=== PATIENT | female | born 1990 | race Caucasian/White ===

== ENCOUNTER 2020-10-30 06:24 | Emergency (ER) | payer OTHER ==
[~2020-10-30] VITALS: Ht 157.5 cm; Wt 69.3 kg
--- NOTE | 2020-10-30 06:41 | NUR ---
REPORT GIVEN TO ONCOMING RN
[2020-10-30] MEDS ORDERED: OXYcodone/APAP 5/325MG TABLET ONE (06:56)
[2020-10-30] MEDS ORDERED: IBUPROFEN 600 MG TABLET ONE (06:56)
[2020-10-30] MEDS ORDERED: IBUPROFEN 600 MG TABLET PO ONE (07:00)
[2020-10-30] MEDS ORDERED: OXYcodone/APAP 5/325MG TABLET PO ONE (07:00)
--- NOTE | 2020-10-30 07:01 | NUR ---
report received from cheyenne watkins.
--- NOTE | 2020-10-30 07:01 | NUR ---
pt medicated per emar. pt tolerated well.
--- NOTE | 2020-10-30 07:05 | NUR ---
us in room
--- NOTE | 2020-10-30 07:43 | NUR ---
pt resting in [facility]. pt's aox4. resps even and unlabored. bp/spo2 monitors in place. call light within reach.
[2020-10-30 07:59] VITALS: BP 109/55
== END 2020-10-30 08:00 | disposition home or self-care (01) ==
LOC: ED 07:30
DX: I80.8 Phlebitis and thrombophlebitis of other sites (principal); M79.622 Pain in left upper arm; M25.522 Pain in left elbow
CPT/HCPCS: 99284

== ENCOUNTER 2021-03-15 18:44 | Emergency (ER) | payer OTHER ==
[~2021-03-15] VITALS: Ht 154.9 cm; Wt 68.0 kg
--- NOTE | 2021-03-15 19:01 | NUR ---
NIL X 1
[2021-03-15 19:17] VITALS: BP 122/93
[2021-03-15] MEDS ORDERED: DEXAMETHASONE 4 MG TABLET PO ONE (21:00)
[2021-03-15] MEDS ORDERED: DEXAMETHASONE 4 MG TABLET ONE (21:21)
== END 2021-03-15 21:29 | disposition home or self-care (01) ==
LOC: ED 21:00
DX: J06.9 Acute upper respiratory infection, unspecified (principal); Z20.822 Contact with and (suspected) exposure to COVID-19; R05 Cough
CPT/HCPCS: 71046; 99284; U0003; U0005

== ENCOUNTER 2021-04-25 17:16 | Emergency (ER) | payer OTHER ==
[~2021-04-25] VITALS: Ht 152.4 cm; Wt 65.7 kg
[2021-04-25 18:13] VITALS: BP 126/83
--- NOTE | 2021-04-25 22:20 | NUR ---
DR. SAMANIEGO AT BEDSIDE
[2021-04-25] MEDS ORDERED: ACETAMINOPHEN 500 MG TABLET PO ONE (22:30)
[2021-04-25] MEDS ORDERED: ACETAMINOPHEN 500 MG TABLET ONE (22:48)
--- NOTE | 2021-04-25 23:23 | NUR ---
Patient/Caregiver given discharge instructions and they have confirmed that they understand the instructions. Patient ambulatory with steady gait. NAD, all questions answered appropriately, denies additional needs at this time. No personal belongings left in room after discharge.
== END 2021-04-25 23:29 | disposition home or self-care (01) ==
LOC: ED 22:53
DX: S16.1XXA Strain of muscle, fascia and tendon at neck level, initial encounter (principal); S39.012A Strain of muscle, fascia and tendon of lower back, initial encounter; Y04.8XXA Assault by other bodily force, initial encounter; Y93.89 Activity, other specified; Y92.89 Other specified places as the place of occurrence of the external cause; Y99.8 Other external cause status
CPT/HCPCS: 72050; 99283